=== PATIENT | female | born 1995 ===

== ENCOUNTER 2018-07-15 15:01 | Emergency (ER) | payer OTHER ==
[~2018-07-15] VITALS: Ht 154.9 cm; Wt 68.0 kg
== END 2018-07-15 20:10 | disposition home or self-care (01) ==
LOC: ER 15:01
DX: O21.0 Mild hyperemesis gravidarum (principal); O26.891 Other specified pregnancy related conditions, first trimester; R10.2 Pelvic and perineal pain; Z34.01 Encounter for supervision of normal first pregnancy, first trimester

== ENCOUNTER 2018-10-17 21:26 | Emergency (ER) | payer OTHER ==
[~2018-10-17] VITALS: Ht 154.9 cm; Wt 78.9 kg
[2018-10-17] MEDS ORDERED: PRENATAL ONE D1 EACH (21:40)
[2018-10-17] MEDS ORDERED: RENA-VITE TABL0.8 MG (21:40)
[2018-10-17] MEDS ORDERED: OBSTETRIX ONE1 EACH (21:40)
[2018-10-17] MEDS ORDERED: VITAMIN D34000 UNIT (21:41)
[2018-10-18] MEDS ORDERED: CEFUROXIME500 MG PO (02:29)
== END 2018-10-18 02:53 | disposition home or self-care (01) ==
LOC: ER 21:26
DX: O23.32 Infections of other parts of urinary tract in pregnancy, second trimester (principal); Z34.01 Encounter for supervision of normal first pregnancy, first trimester

== ENCOUNTER 2018-10-30 08:37 | Emergency (ER) | payer OTHER ==
[~2018-10-30] VITALS: Ht 154.9 cm; Wt 73.5 kg
[~2018-10-30 08:37] MED LIST: CEFUROXIME500 MG PO; OBSTETRIX ONE1 EACH; PRENATAL ONE D1 EACH; RENA-VITE TABL0.8 MG; VITAMIN D34000 UNIT
== END 2018-10-30 14:13 | disposition home or self-care (01) ==
LOC: ER 08:37
DX: J11.1 Influenza due to unidentified influenza virus with other respiratory manifestations (principal); E86.0 Dehydration

== ENCOUNTER 2018-12-24 00:34 | Outpatient (CLI) | payer OTHER | END 2018-12-24 11:05 | disposition home or self-care (01) | LOC: OBS/DEL 00:34 | DX: O47.1 False labor at or after 37 completed weeks of gestation (principal); Z34.03 Encounter for supervision of normal first pregnancy, third trimester ==